=== PATIENT | female | born 1945 | race Two or more races ===

== ENCOUNTER 2017-06-24 10:25 | Emergency (ER) | payer OTHER ==
[~2017-06-24] VITALS: Ht 149.9 cm; Wt 56.7 kg
[~2017-06-24 10:25] MED LIST: NABUMETONE500 MG PO; PERCOCET 5/3251 TAB PO
[2017-06-24] MEDS ORDERED: COZAAR50 MG (10:48)
[2017-06-24] MEDS ORDERED: DICLOFENAC POTA50 MG PO (13:39)
[2017-07-02] MEDS ORDERED: AMBIEN10 MG (11:36)
== END 2017-06-24 14:29 | disposition home or self-care (01) ==
LOC: ER 10:25
DX: M54.5 Low back pain (principal); M54.6 Pain in thoracic spine; M25.511 Pain in right shoulder

== ENCOUNTER → 2017-07-02 | Emergency (ER) | payer OTHER ==
[~2017-07-02] VITALS: Ht 152.4 cm; Wt 102.1 kg
[~2017-07-02] MED LIST changes: +AMBIEN10 MG; +COZAAR50 MG; +DICLOFENAC POTA50 MG PO
== END | disposition home or self-care (01) ==
LOC: ER 11:06
DX: R05 Cough (principal); Z87.891 Personal history of nicotine dependence

== ENCOUNTER 2023-04-18 09:12 | Emergency (ER) | payer OTHER ==
[~2023-04-18] VITALS: Ht 149.9 cm; Wt 59.0 kg
[2023-04-18] MEDS ORDERED: BENADRYL25 MG PO (09:36)
== END 2023-04-18 15:01 | disposition home or self-care (01) ==
LOC: ER 09:12
DX: H65.92 Unspecified nonsuppurative otitis media, left ear (principal)
CPT/HCPCS: 96372; 99284; J0696; J1885

== ENCOUNTER → 2025-01-26 | Emergency (ER) | payer OTHER ==
[~2025-01-26] VITALS: Ht 149.9 cm; Wt 57.6 kg
[~2025-01-26] MED LIST changes: +ACETAMINOPHEN 500 MG GEL..CAP PO ONE; +BENADRYL25 MG PO; +DEXAMETHASONE SODIUM PHOSPHATE 4 MG/ML VIAL IM ONE; +DEXAMETHASONE SODIUM PHOSPHATE 4 MG/ML VIAL ONE; +KETO10TA2 PO; +KETOROLAC TROMETHAMINE 60 MG VIAL IM ONE; +NORFLEX100MG PO; +ORPHENADRINE CITRATE 30 MG/ML AMPUL IM ONE; +ORPHENADRINE CITRATE 30 MG/ML AMPUL ONE; +PEPCID AC20 MG PO; +TRAZODONE HCL50 MG PO; +VISTARIL50 MG/ML IM; +ZOLOFT20 MG/1 ML PO
== END | disposition home or self-care (01) ==
LOC: ER 10:35
DX: M25.512 Pain in left shoulder (principal)
CPT/HCPCS: 73030; 96372; 99283; J1100; J1885; J2360